=== PATIENT | female | born 1955 | race Two or more races ===

== ENCOUNTER 2018-01-12 15:13 | Outpatient (CLI) | payer OTHER ==
[~2018-01-12 15:13] MED LIST: AVALIDE 300-12.1 TAB; MELOXICAM7.5 MG; SYNTHROID200 MCG; TESSALON PERLE100 MG PO; TUSNEL C SYRUP473 ML; TUSSI PRES-B L120 M1 PO; WELLBUTRIN XL300 MG; ZITHROMAX TRI-500 MG PO
== END 2018-01-12 15:23 | disposition home or self-care (01) ==
LOC: SONOGRAMA 15:13
DX: N60.11 Diffuse cystic mastopathy of right breast (principal); N60.12 Diffuse cystic mastopathy of left breast; N63.14 Unspecified lump in the right breast, lower inner quadrant

== ENCOUNTER 2018-02-19 16:38 | Emergency (ER) | payer OTHER ==
[~2018-02-19] VITALS: Ht 160 cm; Wt 97.5 kg
[2018-02-20] MEDS ORDERED: FLAGYL500MG PO (01:42)
[2018-02-20] MEDS ORDERED: CIPRO500 MG PO (01:42)
[2018-02-20] MEDS ORDERED: LEVSIN/SL0.125 MG PO (01:42)
[2018-02-20] MEDS ORDERED: ZANTAC300 MG PO (01:42)
[2018-02-20] MEDS ORDERED: INTESTINEX680 M1 PO (01:42)
== END 2018-02-20 01:03 | disposition home or self-care (01) ==
LOC: ER 16:38
DX: K52.9 Noninfective gastroenteritis and colitis, unspecified (principal); K62.5 Hemorrhage of anus and rectum; R10.84 Generalized abdominal pain

== ENCOUNTER 2018-10-17 06:38 | Emergency (ER) | payer OTHER ==
[~2018-10-17] VITALS: Ht 157.5 cm; Wt 90.7 kg
[~2018-10-17 06:38] MED LIST changes: +CIPRO500 MG PO; +FLAGYL500MG PO; +INTESTINEX680 M1 PO; +LEVSIN/SL0.125 MG PO; +ZANTAC300 MG PO
== END 2018-10-17 13:57 | disposition home or self-care (01) ==
LOC: ER 06:38
DX: J06.9 Acute upper respiratory infection, unspecified (principal)

== ENCOUNTER 2019-03-05 09:47 | Outpatient (CLI) | payer OTHER | END 2019-03-05 09:54 | disposition home or self-care (01) | LOC: SONOGRAMA 09:47 → MAMO-SONO 10:15 | DX: N85.2 Hypertrophy of uterus (principal); R10.2 Pelvic and perineal pain ==

== ENCOUNTER 2025-04-27 09:30 | Inpatient (IN) | payer OTHER ==
[2025-04-22 09:49] LABS: BASO % 1.1 % (0.1-1.2); EOS # 0.15 (0.04-0.54); EOS % 2.3 % (0.7-7.0); HEMATOCRIT 35.1 % (34.1-44.9); HEMOGLOBIN 11.9 g/dL (11.2-15.7); LYMPH # 1.79 (1.18-3.74); MEAN CORPUSCULAR HEMOGLOBIN 30.9 pg (25.6-32.2); MONO # 0.78 (0.24-0.82); NEUT # 3.59 (1.56-6.13); NEUT % 56.1 % (34.0-71.1); PLATELET COUNT 313 K/uL (163-369); RED BLOOD COUNT 3.85 M/uL (3.93-5.22); RED CELL DISTRIBUTION WIDTH 12.4 % (11.6-14.4)
[2025-04-22 09:54] LABS: MONO % 12.2 % (4.7-12.5)
[2025-04-22 09:58] VITALS: BP 121/83
[2025-04-22 10:06] LABS: INR 0.97; PARTIAL THROMBOPLASTIN TIME 28.5 SECONDS (22.0-34.0); PROTHROMBIN TIME 10.6 SECONDS (9.0-11.5)
[2025-04-22 10:31] LABS: URINE APPEARANCE Clear; URINE BILIRRUBIN Negative (NEGATIVE); URINE BLOOD Negative; URINE COLOR Yellow; URINE GLUCOSE Negative (NEGATIVE); URINE KETONE Negative (NEGATIVE); URINE LEUKOCYTE Negative; URINE NITRATE Negative; URINE PROTEIN Negative (NEGATIVE)
[2025-04-22 10:35] LABS: URINE BACTERIA 36.7 uL (0.0-1933); URINE EPITHELIAL CELLS 56.6 uL (0.0-38.8); URINE RBC 8.9 uL (0.0-20.8); URINE WBC 3.3 uL (0.0-23.2)
[2025-04-22 10:43] LABS: URINE CAST 0.29 uL (0.0-1.40)
[2025-04-22 10:49] LABS: ALBUMIN 3.7 gm/dL (3.4-5.0); BILIRUBIN TOTAL 0.63 mg/dL (0.3-1.2); CALCIUM 8.9 mg/dL (8.5-10.1); CREATININE SERUM 0.78 mg/dL (0.55-1.02); GFR 73.44; GLOBULINA 2.9 G/DL (2.4-3.5); POTASSIUM 3.74 mEq/L (3.5-5.1); TOTAL PROTEIN 6.6 gm/dL (6.4-8.2)
[~2025-04-27] VITALS: Ht 66 cm; Wt 81.6 kg
[~2025-04-27 09:30] MED LIST changes: +AIRDUO RESPICL1 EAC1 IH; +ALLERGY RELIE15.8 ML NASAL; +AZELASTINE137 MCG/0. NASAL; +DILTIAZEM HCL30 MG PO; +MONTELUKAST SOD10 MG PO; +PROAIR RESPICL90 MCG IH
[2025-04-27] MEDS ORDERED: METRONIDAZOLE/SODIUM CHLORIDE 500 MG/100 ML PIGGYBACK IV ONE (09:53)
[2025-04-27] MEDS ORDERED: CEFTRIAXONE SODIUM 2,000 MG VIAL ONE (09:53)
[2025-04-27] MEDS ORDERED: DIBUCAINE 30 GM TUBE ONE (10:44)
[2025-04-27] MEDS ORDERED: HEMOSTATIC MATRIX 1 KIT KIT TOP ONE (10:44)
[2025-04-27] MEDS ORDERED: POVIDONE-IODINE 118 ML BOTT TOP ONE (10:44)
[2025-04-27] MEDS ORDERED: ONDANSETRON HCL 2 MG/ML VIAL IV PRN (13:00)
[2025-04-27] MEDS ORDERED: RINGERS SOLUTION,LACTATED 1,000 ML IV SCH (13:00)
[2025-04-27] MEDS ORDERED: OxyCODONE HCL 5 MG TABLET (ROXICODONE) PO PRN (13:00)
[2025-04-27] MEDS ORDERED: SIMETHICONE 125 MG CAPSULE PO SCH (13:00)
[2025-04-27] MEDS ORDERED: MORPHINE SULFATE 4 MG/ML CARTRIDGE IV PRN (13:00)
[2025-04-27] MEDS ORDERED: HYOSCYAMINE SULFATE 0.125 MG TAB.SUBL SL SCH (13:00)
[2025-04-27] MEDS ORDERED: ACETAMINOPHEN 500 MG GEL..CAP PO SCH (14:00)
[2025-04-27] MEDS ORDERED: MORPHINE SULFATE 4 MG/ML VIAL IV ONE (14:15)
[2025-04-27] MEDS ORDERED: KETOROLAC TROMETHAMINE 30 MG VIAL ONE (16:16)
[2025-04-27] MEDS ORDERED: GABAPENTIN 300 MG CAPSULE PO ONE (16:16)
[2025-04-27] MEDS ORDERED: HYOSCYAMINE SULFATE 0.125 MG TAB.SUBL ONE (16:16)
[2025-04-27] MEDS ORDERED: METOCLOPRAMIDE HCL 5 MG/ML VIAL ONE (16:16)
[2025-04-27] MEDS ORDERED: SIMETHICONE 125 MG CAPSULE PO ONE (16:16)
[2025-04-27] MEDS ORDERED: KETOROLAC TROMETHAMINE 30 MG VIAL IV ONE (16:25)
[2025-04-27] MEDS ORDERED: METOCLOPRAMIDE HCL 5 MG/ML VIAL IV SCH (17:00)
[2025-04-27] MEDS ORDERED: KETOROLAC TROMETHAMINE 30 MG VIAL IV SCH (17:00)
[2025-04-27] MEDS ORDERED: GABAPENTIN 300 MG CAPSULE PO SCH (17:00)
[2025-04-27 17:47] VITALS: BP 125/76; O2SAT 96
[2025-04-27] MEDS ORDERED: FAMOTIDINE/PF 20 MG/2 ML VIAL IV PUSH SCH (21:00)
[2025-04-28 00:16] VITALS: BP 132/76; O2SAT 100
[2025-04-28 06:13] LABS: BASO % 0.6 % (0.1-1.2); EOS # 0.09 (0.04-0.54); EOS % 1.1 % (0.7-7.0); HEMOGLOBIN 9.9 g/dL (11.2-15.7); LYMPH # 1.47 (1.18-3.74); LYMPH % 17.4 % (19.3-53.1); MONO # 0.84 (0.24-0.82); MONO % 9.9 % (4.7-12.5); NEUT # 5.99 (1.56-6.13); NEUT % 70.6 % (34.0-71.1); PLATELET COUNT 218 K/uL (163-369); RED BLOOD COUNT 3.19 M/uL (3.93-5.22)
[2025-04-28 07:00] LABS: ALBUMIN 2.6 gm/dL (3.4-5.0); CALCIUM 8.1 mg/dL (8.5-10.1); CREATININE SERUM 0.62 mg/dL (0.55-1.02); GFR 95.72; MAGNESIUM 1.8 mg/dL (1.8-2.4); PHOSPHOROUS 3.9 mg/dL (2.5-4.9); POTASSIUM 3.28 mEq/L (3.5-5.1)
[2025-04-28] MEDS ORDERED: CELECOXIB200 MG PO (07:59)
[2025-04-28] MEDS ORDERED: INTESTINEX680 M1 PO (07:59)
[2025-04-28] MEDS ORDERED: TRAM1TAB98 PO (08:00)
[2025-04-28] MEDS ORDERED: LACTOBACILLUS ACIDOPHILUS 1 CAP CAP PO SCH (09:00)
[2025-04-28] MEDS ORDERED: ENOXAPARIN SODIUM 40 MG/0.4 ML SYRINGE SUBCUTANEO SCH (17:00)
[2025-04-29] MEDS ORDERED: ENOXAPARIN SODIUM 40 MG/0.4 ML SYRINGE SUBCUTANEO SCH (09:00)
== END 2025-04-28 11:35 | disposition home or self-care (01) | DRG 748 ==
LOC: CIR.AMB 09:30 → O/R 15:34 → SURG 15:34
PROVIDERS: ADMIT Surgery; ATTEND Surgery
PROC: 0JQC0ZZ Repair Pelvic Region Subcutaneous Tissue and Fascia, Open Approach (ICD-10-PCS; principal; 2025-04-27 09:15)
PROC: 3E0T3BZ Introduction of Anesthetic Agent into Peripheral Nerves and Plexi, Percutaneous Approach (ICD-10-PCS; 2025-04-28)
DX: N81.6 Rectocele (principal); R15.9 Full incontinence of feces; K64.2 Third degree hemorrhoids